=== PATIENT | female | born 1945 | race Caucasian/White ===

== ENCOUNTER 2017-04-18 14:58 | Outpatient (CLI) | payer MEDICARE, OTHER | END 2017-04-18 14:59 | disposition home or self-care (01) | LOC: BICMAMMO 14:58 | PROVIDERS: ATTEND Internal Medicine | DX: Z12.31 Encounter for screening mammogram for malignant neoplasm of breast (principal) | CPT/HCPCS: 77063; 77067 ==

== ENCOUNTER 2017-06-07 12:25 | Outpatient (CLI) | payer MEDICARE, OTHER | END 2017-06-07 12:26 | disposition home or self-care (01) | LOC: BICRAD 12:25 | PROVIDERS: ATTEND Internal Medicine | DX: M25.551 Pain in right hip (principal) ==

== ENCOUNTER 2017-09-20 14:22 | Outpatient (CLI) | payer MEDICARE, OTHER | END 2017-09-20 14:23 | disposition home or self-care (01) | LOC: BICRAD 14:22 | PROVIDERS: ATTEND Internal Medicine | DX: M25.552 Pain in left hip (principal); M25.551 Pain in right hip; M25.562 Pain in left knee; M25.561 Pain in right knee; M25.572 Pain in left ankle and joints of left foot; M25.571 Pain in right ankle and joints of right foot; M54.5 Low back pain; M79.672 Pain in left foot; M79.671 Pain in right foot; M17.0 Bilateral primary osteoarthritis of knee; M43.8X5 Other specified deforming dorsopathies, thoracolumbar region; M51.36 Other intervertebral disc degeneration, lumbar region | CPT/HCPCS: 36415; 72100; 80053; 82550; 83520; 83735; 85027; 85652; 86038; 86140; 86200; 86225 ==

== ENCOUNTER 2017-09-28 15:28 | Outpatient (CLI) | payer MEDICARE, OTHER ==
--- NOTE | 2017-09-28 17:46 | MRI ---
MRI LUMBAR SPINE NONCONTRAST: 09/28/17 HISTORY: Low back pain. Radiculopathy. FINDINGS: Images including the retroperitoneum show small bilateral renal cysts and a retroaortic left renal ve in. There is desiccation of all of the intervertebral discs. Vertebral body heights and alignment are maintained. Scattered Schmorl's nodes. Large hemangioma within the L1 vertebral body. 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 T12-L1: Mild osteophytosis. Central canal and neural foramina are patent. L1-L2: Mild posterior disc bulge. Thecal sac is patent. Degenerative changes with moderate bilateral foraminal stenoses. L2-L3: Disc space narrowing. Posterior disc bulge. Thecal sac is patent. Degenerative changes with mi ld right and mild to moderate left foraminal stenoses. L3-L4: Mild posterior disc bulge. Thecal sac is patent. Degenerative changes with mild bilateral fora jayleen stenoses. L4-L5: Minimal disc bulge. Degenerative changes with mild stenosis left neural foramen. Thecal sac is patent. L5-S1: Minimal disc bulge. Thecal sac is patent. Degenerative changes with mild right foraminal steno sis. IMPRESSION: Degenerative changes throughout the lumbar spine as detailed above. Stenoses are most pronounced at e ach L1-2 neural foramen. Clinical correlation regarding each L1 dermatome is required. POS: DINA
== END 2017-09-28 15:29 | disposition home or self-care (01) ==
LOC: TBSIIMAG 15:28
PROVIDERS: ATTEND Urology
DX: M54.5 Low back pain (principal); R29.898 Other symptoms and signs involving the musculoskeletal system; M47.896 Other spondylosis, lumbar region; M47.897 Other spondylosis, lumbosacral region; M99.83 Other biomechanical lesions of lumbar region
CPT/HCPCS: 72148

== ENCOUNTER 2018-04-20 07:48 | Outpatient (CLI) | payer MEDICARE, OTHER | END 2018-04-20 07:49 | disposition home or self-care (01) | LOC: BICMAMMO 07:48 | PROVIDERS: ATTEND Internal Medicine | DX: Z12.31 Encounter for screening mammogram for malignant neoplasm of breast (principal) | CPT/HCPCS: 77063; 77067 ==

== ENCOUNTER 2018-08-07 14:11 | Outpatient (CLI) | payer MEDICARE, OTHER ==
--- NOTE | 2018-08-07 16:01 | MRI ---
MRI BRAIN AND INTERNAL AUDITORY CANALS WITH AND WITHOUT CONTRAST: 08/07/18 HISTORY: 72-year-old female with dizziness and H91.90, unspecified hearing loss right ear. TECHNIQUE: Multiple sequences obtained in axial, sagittal, and coronal planes; both whole brain images and thin slices through the IAC's, pre and post IV injection of gadolinium-based contrast agent: 60 mL Multiha nce. FINDINGS: The ventricles are normal in size and configuration. There is no major intraaxial signal abnormality , restricted diffusion, abnormal intraaxial enhancement, mass, midline shift or any other mass effect , recent intraaxial hemorrhage, or extraaxial fluid collection. There is no abnormal enhancement, mass, or morphologic abnormality, involving the cerebellopontine an gles, 7th-8th nerve complexes, internal auditory canals, cochleae, vestibules, vestibular aqueducts, or semicircular canals. There is a small right mastoid effusion. IMPRESSION: 1. Small right mastoid effusion. 2. Otherwise negative. jn[] POS: KARMEN
== END 2018-08-07 14:12 | disposition home or self-care (01) ==
LOC: BICMRI 14:11
PROVIDERS: ATTEND Internal Medicine
DX: H91.91 Unspecified hearing loss, right ear (principal); R51 Headache; R42 Dizziness and giddiness; H74.8X1 Other specified disorders of right middle ear and mastoid
CPT/HCPCS: 70553

== ENCOUNTER 2021-04-10 10:21 | Outpatient (CLI) | payer MEDICARE, OTHER | END 2021-04-10 10:22 | disposition home or self-care (01) | LOC: BICMAMMO 10:21 | PROVIDERS: ATTEND Internal Medicine | DX: Z12.31 Encounter for screening mammogram for malignant neoplasm of breast (principal) | CPT/HCPCS: 77063; 77067 ==